=== PATIENT | male | born 1950 | race Caucasian/White ===

== ENCOUNTER 2024-11-02 11:07 | Emergency (ER) | payer BC, SELFPAY ==
[2024-11-02 11:26] VITALS: BP 151/81; PULSE 65; RESP 16; TEMP 36.5; O2SAT 96
--- NOTE | 2024-11-02 12:30 | DI.CT_ITS ---
Exam(s) CT LUMBAR SPINE W EXAM: CT LUMBAR SPINE W CLINICAL HISTORY: mass over lumbar spine, sebaceous cyst (6days). TECHNIQUE: Imaging Protocol: Axial computed tomography images with coronal and sagittal reformatted images were created and reviewed Intravenous contrast injected: 100 cc Omnipaque 350 COMPARISON: No exams were available for comparison FINDINGS: SUBCUTANEOUS SOFT TISSUES: There is a peripherally enhancing midline subcutaneous cystic appearing lesion posterior to the spinous process of T12, this measuring 3.5 cm craniocaudal measurement by 2.5 cm wide by 1.6 cm AP. This is immediately subcutaneous and extends to just superficial to the posteri or aspect of the T12 spinous process. There is no obvious osseous involvement of the T12 spinous process. There are no other subcutaneous findings in the lumbar spine. Bones: There are no fractures, listhesis, nor pars defects. Chronic degenerative disc disease at L3-4 and L4-5 noted INDIVIDUAL LEVELS: T12-L1:No disc herniation nor canal stenosis. Facet joints unremarkable. No foraminal stenosis. L1-2: No disc herniation nor canal stenosis. Facet joints unremarkable. No foraminal stenosis. L2-3: No disc herniation nor canal stenosis. Facet joints unremarkable. No Foraminal stenosis L3-4: There is moderate central spinal canal stenosis at this level due to combination of broad annular bulging, short AP dimensions the pedicles. Facet joints appear unremarkable. No significant foraminal stenosis. L4-5: Mild disc space narrowing and anterior osseous lipping. There is moderate spinal canal stenosis also evident at this level due to annular bulging and short AP dimensions of the pedicles. Facet joints unremarkable. L5-S1: Normal disc height. No disc herniation or spinal canal stenosis at this level. There is facet arthropathy more so left than right evident at this level. No significant foraminal stenosis. The visualized sacroiliac joints and sacrum appear unremarkable. PARASPINAL SOFT TISSUES: A large calcification is noted on the posterior wall the urinary bladder which measures 2 points 3 x 2.5 cm. Probably a large bladder calculus. There is also dilatation left ureter. The prostate gland is enlarged, measuring 7 cm wide. IMPRESSION: 1. There is a midline subcutaneous peripherally enhancing sister abscess immediately posterior to the spinous process of T12. Probably a sebaceous cyst or infected sebaceous cyst. This measures approximately 3.5 cm craniocaudal x 2.5 cm wide x 1.6 cm AP. 2. Other spinal findings as above 3. Incidentally noted is a calculus in the urinary bladder measuring 2.5 cm. Also dilatation left ureter noted. Left hydroureter/left hydronephrosis.. Requires investigation. The findings as above. Report called by myself to ER physician 11/02/2024 at 5 p.m. RADIATION DOSE DELIVERED: 466.66mGy.cm Total DLP DATA REPOSITORY: All CT scans at this facility are submitted to the National Radiology Data Registry (NRDR) Dose Index Registry (DIR) with the [employer] (A[employer]). RADIATION OPTIMIZATION: All CT scans at this facility use at least one of these dose optimization techniques: automated exposure control; mA and/or kV adjustment per patient size (includes targeted exams where dose is matched to clinical indication); or iterative reconstruction.
[2024-11-02 14:56] LABS: ESR 6 mm/hr (0-20)
[2024-11-02 14:59] LABS: Abs Immature Grans 0.03 10^3/uL (0.0-0.06); HCT 46.7 % (40.0-50.0); HGB 15.4 g/dL (13.5-17.5); Immature Grans % 0.4 %; MCH 29.3 pg (27.0-33.0); MCHC 33.0 % (32.0-36.0); MCV 89 fL (80-95); MPV 10.4 fL (8.0-11.0); Platelet Count 226 10^3/uL (130-400); RBC 5.26 10^6/uL (4.36-5.78); RDW 13.6 % (11.8-14.1); RDW-SD 44.3 fL; WBC 7.91 10^3/uL (4.4-10.8)
--- NOTE | 2024-11-02 15:07 | W.ED.GENAD ---
Discharge Plan Disposition Patient Disposition: Home Condition: Stable Discharge Details Clinical Impression: Abscess of back Primary Care Provider: Genevieve,Local ED Provider: Nakul Cabrera Home Meds and New Rx's Prescriptions: New sulfamethoxazole-trimethoprim [Bactrim DS] 800-160 mg tablet 1 tab PO BID Qty: 14 0RF Discharge Instructions Additional Instructions: You had a likely infected cyst that turned into an abscess. I incised this and got a lot of pus out of it. Try to soak your back a few times a day if possible and at home. The CT also showed you have a stone in your bladder and your ureter is mildly enlarged. You should let your primary care know about this as you should have a follow-up with urology. Take the antibiotic as prescribed. If you feel significantly more ill or have new symptoms such as high fevers or severe worsening pain return to the emergency department for reevaluation HPI General Mode of arrival: ambulatory. Date/Time Provider Initiated Documentation: 11/02/24 12:03. Limitations to Documentation: no limitations. Information obtained by: patient. History of Present Illness 74 year old M presents to the emergency department with the chief complaint of lump on back, described as mild, Quality is described as aching, and is localized to the back. Patient reports no radiation. and it has been constant. No relieving factors improve symptom(s), No exacerbating factors reported . Patient notes no other symptoms.. Patient did receive the following treatments prior to arrival, none Related Data Home Medications ?Medication ?Instructions ?Recorded ?Confirmed sulfamethoxazole 800 1 tab PO BID #14 tabs 11/02/24 mg-trimethoprim 160 mg tablet (Bactrim DS) Previous Rx's ?Medication ?Instructions ?Recorded sulfamethoxazole 800 1 tab PO BID #14 tabs 11/02/24 mg-trimethoprim 160 mg tablet (Bactrim DS) General Stated Complaint: GenMedical DIANE: 3 Review of Systems All systems reviewed & are unremarkable except as noted in HPI and below Constitutional Constitutional: Denies chills, Denies fever(s) and Denies weakness Cardiovascular Cardiovascular: Denies chest pain and Denies dyspnea Respiratory Respiratory: Denies cough and Denies dyspnea Gastrointestinal Gastrointestinal: Denies abdominal pain, Denies nausea and Denies vomiting Integumentary/Breasts Skin/Breast: Reports furuncle Neurologic Neurologic: Denies weakness Psychiatric Psychiatric: Denies depression Exam Const General: no acute distress Orientation: alert HENWV Head: normal to inspection Ears: external ears normal General nose exam: external nose normal Mouth: moist mucous membranes Eyes General: appearance normal, both eyes and all related structures Neck Neck: normal visual inspection Resp Effort & Inspection: normal respiratory effort and able to speak in complete sentences Cardio Rate: regular rate Back/Spine/Pelvis Back: no CVA tenderness Thoracic/Lumbar Spine: No thoracic spinal tenderness Neuro General: patient alert and patient oriented x3 Extrem General: normal to inspection Psych Mental Status: mental status grossly normal Course Vital Signs Vital signs: Vital Signs Temperature 36.5 C 11/02/24 11:26 Pulse 65 11/02/24 11:26 Respiratory Rate 16 11/02/24 11:26 Blood Pressure 151/81 H 11/02/24 11:26 Pulse Oximetry 96 11/02/24 11:26 Temperature 36.5 C 11/02/24 11:26 Temperature Source Oral 11/02/24 11:26 Pulse 65 11/02/24 11:26 Respiratory Rate 16 11/02/24 11:26 Blood Pressure 151/81 H 11/02/24 11:26 Blood Pressure Position Sitting 11/02/24 11:26 Pulse Oximetry 96 11/02/24 11:26 Oxygen Delivery Method Room Air 11/02/24 11:26 Oxygen Flow Rate 0 11/02/24 11:26 Lab/Test Results Lab/Test Results: Laboratory Tests Range/Units 11/02/24 14:50 WBC (4.4-10.8) 10^3/uL 7.91 RBC (4.36-5.78) 10^6/uL 5.26 Hgb (13.5-17.5) g/dL 15.4 Hct (40.0-50.0) % 46.7 MCV (80-95) fL 89 MCH (27.0-33.0) pg 29.3 MCHC (32.0-36.0) % 33.0 RDW (11.8-14.1) % 13.6 Plt Count (130-400) 10^3/uL 226 MPV (8.0-11.0) fL 10.4 Immature Gran % % 0.4 Neutrophils % % 77.2 Lymphocytes % % 12.9 Monocytes % % 6.3 Eosinophils % % 2.3 Basophils % % 0.9 Nucleated RBC % (0.0-0.3) % 0.0 Absolute Neutrophils (1.2-6.7) 10^3/uL 6.11 Absolute Lymphocytes (1.2-3.4) 10^3/uL 1.02 L Absolute Monocytes (0.1-0.8) 10^3/uL 0.50 Absolute Eosinophils (0.0-0.7) 10^3/uL 0.18 Absolute Basophils (0.0-0.2) 10^3/uL 0.07 ESR (0-20) mm/hr 6 Procedure Abscess Drainage Patient Consented: Verbally Location of Exam: Lower back/left side (midline) Ultrasound: Not used Complications: None Medical Decision Making 74-year-old male who had a skin cancer removal on his left upper back in [place] on the and at that time noticed a lump on his lower back midline that he thinks is getting bigger so came here for evaluation. He denies any fevers or chills he otherwise feels well. He has no changes in bowel or bladder patterns. Denies any IV drug use. He is well-appearing on exam. He has a 2 x 3 cm mildly erythematous fluctuance in the mid lower back that is not significantly tender. I suspect sebaceous cyst versus abscess. Orders were placed prior to my exam including CBC inflammatory markers and a CMP as well as a CT to evaluate for communication with underlying structures which I feel is reasonable to continue. CT shows likely infected sebaceous cyst and also incidental stone in the bladder and enlarged left ureter and hydronephrosis. Patient denies ever having any kidney stone history. I informed him of these results and he will follow-up with his PCP for possible urology referral. He gave verbal consent and after cleaning the area and injecting lidocaine with epi I used an 11 blade and made 1/2 cm incision and had copious months of purulent fluid come out and I probed with a April clamp. He tolerated well without complications. I will start him on Bactrim. He is stable for discharge. Return precautions given Differential Diagnosis Differential Diagnosis: Sebaceous cyst, abscess PFSH All Active Problems (Updated 11/02/24 @ 17:39 by Nakul Cabrera MD) Abscess of back (Acute) Social History Smoking risk assessment performed?: No
[2024-11-02 15:17] LABS: ALT 21 U/L (16-63); AST 15 U/L (15-37); Albumin 3.8 g/dL (3.4-5.0); Alkaline Phosphatase 149 U/L (46-116); Anion Gap 8.9 mmol/L (3-11); BUN 18 mg/dL (7-18); Bilirubin, Total 0.7 mg/dL (0.2-1.0); C-Reactive Protein 0.87 mg/dL (<or=0.5); CO2 27.1 mmol/L (21.0-32.0); Calcium 9.4 mg/dL (8.5-10.1); Chloride 106 mmol/L (98-107); Estimated GFR 69.57 (mL/min/1.73m2); Glucose 93 mg/dL (74-106); Potassium 4.6 mmol/L (3.5-5.1); Sodium 142 mmol/L (136-145); Total Protein 7.1 g/dL (6.4-8.2)
[2024-11-02] MEDS: Normal Saline - Diluent 50 ML VIAL IJ (16:30)
[2024-11-02] MEDS: Omnipaque 350 MG/ML 100 ML BTL IJ (16:30)
[2024-11-02] MEDS: Lidocaine 2% Multi-Dose W/EPI 1/100,000 20 ML VIAL (17:35)
[2024-11-02] MEDS: Sulfameth/Trimeth DS TAB 1 TAB PO (17:52)
[2024-11-02 18:01] VITALS: BP 151/81; PULSE 65; RESP 16; TEMP 36.5; O2SAT 96
== END 2024-11-02 18:01 | disposition home or self-care (01) ==
PROVIDERS: Physician Assistant; Emergency Provider Emergency Medicine
DX: L02.212 Cutaneous abscess of back [any part, except buttock and flank] (principal)
CPT/HCPCS: 99283; 99285; 10060; 80053; 85652; 72132; 85025; 86140; J2004; J3490